=== PATIENT | male | born 1985 | race Caucasian/White ===

== ENCOUNTER 2022-07-30 08:16 | Outpatient (CLI) | payer OTHER | END 2022-07-30 08:17 | disposition home or self-care (01) | LOC: ULT 08:16 | PROVIDERS: ATTEND Nurse Practitioner Family | DX: I88.9 Nonspecific lymphadenitis, unspecified (principal); I89.8 Other specified noninfective disorders of lymphatic vessels and lymph nodes | CPT/HCPCS: 76536 ==

== ENCOUNTER 2022-08-12 08:24 | Outpatient (CLI) | payer OTHER ==
[2022-08-12] MEDS ORDERED: Iopamidol 370 76% 100 ML VIAL ONE (12:45)
== END 2022-08-12 08:25 | disposition home or self-care (01) ==
LOC: CT 08:24
PROVIDERS: ATTEND Family Medicine
DX: I88.9 Nonspecific lymphadenitis, unspecified (principal)
CPT/HCPCS: 70491